=== PATIENT | female | born 1955 | race Caucasian/White ===

== ENCOUNTER 2020-10-02 07:53 | Outpatient (CLI) | payer SELFPAY ==
--- NOTE | 2020-10-02 08:00 | US_ITS ---
WS: [id number] ULTRASOUND BILATERAL BREAST HISTORY: Z12.31 - Encounter for screening mammogram for malignant ... COMPARISON: None available. TECHNIQUE: 2-D and Doppler. RIGHT breast: Hypoechoic nodule 2:00, 1 cm from the nipple measures 11 x 11 x 11 mm. Additional hypoe choic nodule 2:00 1 cm from the nipple 2 x 3 x 2 mm. Hypoechoic nodule 8:00, at the areolar measures 5 x 5 x 3 mm. Hypoechoic nodule RIGHT breast 10:00 measures 7 x 9 x 5 mm. Benign lymph nodes in the a xilla. LEFT breast: Benign lymph nodes LEFT axilla. US/US breast BI complete [id number] IMPRESSION: BI-RADS: 0-Incomplete: Need additional imaging evaluation FOLLOW-UP: See Report Bilateral screening mammogram was not obtained prior to this complete breast ul trasound. Recommend follow-up diagnostic mammogram is a breast ultrasound canno t replace the mammogram. If there are prior ultrasound or mammographic examinat ions these should also be obtained for comparison purposes.
== END 2020-10-02 07:54 | disposition home or self-care (01) ==
LOC: RAD 07:55
PROVIDERS: PCP Family Medicine; Visit Provider Family Medicine
DX: Z12.31 Encounter for screening mammogram for malignant neoplasm of breast (principal); N63.12 Unspecified lump in the right breast, upper inner quadrant; N63.13 Unspecified lump in the right breast, lower outer quadrant
CPT/HCPCS: 76641

== ENCOUNTER 2021-06-04 14:51 | Emergency (ER) | payer MEDICARE, BC, SELFPAY ==
[2021-06-04 14:58] VITALS: BP 133/90; PULSE 95; RESP 14; TEMP 36.3; O2SAT 95; BMI 27.1
--- NOTE | 2021-06-04 15:21 | XR_ITS ---
WS: [id number] Portable AP upright chest, 06/04/2021 Clinical Data: dyspnea/cough Comparison: None. Findings: There are patchy bilateral opacities especially in the upper lobes. These could be chronic changes but may represent acute pneumonia. The diaphragms are elevated and flattened. The heart is no rmal. The aortic arch shows tortuosity. No nodules or masses are seen. XR/XR chest 1V portable [id number] Impression: 1. Patchy bilateral pulmonary opacities especially in the upper lobes which may represent chronic interstitial fibrosis but acute pneumonia is possible. 2. Atherosclerosis. 3. Elevation of both diaphragms from hyperinflation.
--- NOTE | 2021-06-04 15:21 | ED_ITS ---
Documented by User: Matias Moss DO 06/05/21 07:27 HPI - Chest Pain General: Chief Complaint: Chest Pain Stated Complaint: Chest Pain Time Seen by Provider: 06/04/21 15:20 Source: patient Mode of arrival: ambulatory History of Present Illness: 65-year-old female presents emergency room complaining of generalized fatigue generally not feeling well onset left-sided chest pain radiating to her neck arm and a little bit into her back. Has not had any vomiting or diarrhea. She denies any fever sweats or chills. MD complaint: chest pain Onset (ago): day(s) Timing of current episode: episodic Prior episodes: Yes Onset: during rest Pain location: left chest Pain radiation: neck and left shoulder Severity: mild Quality: tightness and aching Relieving factors: nothing Exacerbating factors: nothing Associated symptoms: Deny abdominal pain, diaphoresis, dyspnea, fever(s), leg edema, nausea, palpitations, sense of impending doom, syncope or vomiting Treatment prior to arrival: none Review of Systems Const: Denies: fever(s) or diaphoresis ENMT: Denies: throat pain, ear or mastoid pain, nasal discharge or nasal congestion Card: Denies: palpitations or syncope Resp: Denies: dyspnea GI: Denies: abdominal pain, nausea or vomiting : Denies: flank pain, difficulty voiding, dysuria, urinary frequency or urin tyler urgency Skin/Breast: Denies: rash or pruritus [facility] ED PFSH: Medical History Compression fracture (~01/2020) Femoral hernia (~2014) Hearing loss (03/2013) Hx of fracture of tibia (~2013) Large hiatal hernia Pulmonary sarcoidosis (~2014) Rheumatoid arthritis (08/2020) Surgical History H/O sinus surgery (~1980) H/O: hysterectomy (~2008) History of kidney surgery (~2008) Hx of cholecystectomy (~2014) Social History Smoking and tobacco status: never smoked Marital status: Physical Exam Const: COMMON NORMALS: no acute distress GENERAL APPEARANCE: cooperative and comfortable ORIENTATION/CONSCIOUSNESS: Yes awake, Yes oriented to person, Yes oriented to place and Yes oriented to time HENMT: COMMON NORMALS: normocephalic, atraumatic and hearing grossly normal bilaterally HEAD & SCALP: normocephalic and atraumatic Neck/C-Spine: COMMON NORMALS: no JVD Resp: COMMON NORMALS: normal respiratory effort, No retractions, No use of accessory muscles and clear to auscultation bilaterally AUSCULTATION: clear to auscultation bilaterally Cardio: COMMON NORMALS: no JVD, regular rate, regular rhythm and No murmurs present (Cardio) RATE: regular rate RHYTHM: regular rhythm GI: COMMON NORMALS: Soft to palpation and No hepatosplenomegaly present AUSCULTATION: Yes normoactive bowel sounds PALPATION: Yes Soft to palpation, No Tenderness to palpation present (GI), No Guarding due to palpation present (GI) and Yes No hepatosplenomegaly present Extremity: COMMON NORMALS: normal to inspection, capillary refill normal, no clubbing, cyanosis or edema, no calf tenderness and no pedal edema Neuro: SENSORIUM/ORIENTATION: Yes oriented to person, Yes oriented to place and Yes oriented to time Skin: COMMON NORMALS: no rashes or lesions noted GENERAL SKIN EXAM: no rashes or lesions noted Course Vital Signs: Vital signs: Vital Signs Temperature 97.3 F L 06/04/21 14:58 Pulse Rate 98 06/04/21 19:20 Respiratory Rate 18 06/04/21 19:20 Blood Pressure 119/83 06/04/21 19:20 Pulse Oximetry 99 06/04/21 19:20 MDM - Chest Pain Medical Decision Making Care signed out to Dr. Martin at change of shift. See final notes for diagnosis and disposition. Patient presents here with chest pains atypical in nature I took patient over from Dr. Cleainng initial repeat troponins are negative patient has no symptoms of pneumonia here she does have a history of sarcoidosis likely the findings on the x-ray. She has no signs of pulmonary embolism Covid here is negative she is stable for discharge is to follow-up with PCP in 3 to 5 days and return if worsening. Medical Records I reviewed the patient's medical records. Lab Data : 06/04/21 15:44 06/04/21 15:44 Radiology Impressions Chest X-Ray 06/04/21 15:21 Impression: 1. Patchy bilateral pulmonary opacities especially in the upper lobes which may represent chronic interstitial fibrosis but acute pneumonia is possible. 2. Atherosclerosis. 3. Elevation of both diaphragms from hyperinflation. Laboratory Results WBC 8.3 10^3/uL (4.0-10.0) 06/04/21 15:44 RBC 4.37 10^6/uL (4.1-5.3) 06/04/21 15:44 Hgb 13.7 g/dL (11.5-15.3) 06/04/21 15:44 Hct 42.2 % (37.0-47.0) 06/04/21 15:44 MCV 96.6 fl (81-99) 06/04/21 15:44 MCH 31.4 pg (28.0-34.0) 06/04/21 15:44 MCHC 32.5 g/dL (30.0-36.0) 06/04/21 15:44 RDW 14.4 % (12.1-15.1) 06/04/21 15:44 Plt Count 277 10^3/cmm (130-400) 06/04/21 15:44 MPV 10.0 fL (7.4-10.4) 06/04/21 15:44 Neut % (Auto) 83.9 % 06/04/21 15:44 Lymph % (Auto) 6.3 % 06/04/21 15:44 [place] % (Auto) 5.9 % 06/04/21 15:44 Eos % (Auto) 3.5 % 06/04/21 15:44 Baso % (Auto) 0.2 % 06/04/21 15:44 Neut # (Auto) 6.96 10^3/uL (1.8-7.7) 06/04/21 15:44 Lymph # (Auto) 0.5 10^3/uL (0.8-4.8) L 06/04/21 15:44 [place] # (Auto) 0.5 10^3/uL (0.2-0.9) 06/04/21 15:44 Eos # (Auto) 0.3 10^3/uL (0.0-0.8) 06/04/21 15:44 Baso # (Auto) 0.0 10^3/uL (0.0-0.1) 06/04/21 15:44 Nucleated RBC % (auto) 0 % 06/04/21 15:44 Nucleated RBCs # 0.0 /100WBC 06/04/21 15:44 Sodium 134 mmol/L (136-145) L 06/04/21 15:44 Potassium 3.4 mmol/L (3.5-5.1) L 06/04/21 15:44 Chloride 101 mmol/L (98-107) 06/04/21 15:44 Carbon Dioxide 25 mmol/L (22-29) 06/04/21 15:44 Anion Gap 11.4 (5-19) 06/04/21 15:44 BUN 15 mg/dL (8-23) 06/04/21 15:44 Creatinine 0.3 mg/dL (0.5-0.9) L 06/04/21 15:44 GFR Calculation 224.0 mL/min (90-130) H 06/04/21 15:44 Glucose 107 mg/dL (65-115) 06/04/21 15:44 Calculated Osmolality 279 mOsm/kg (285-295) L 06/04/21 15:44 Calcium 7.6 mg/dL (8.5-10.5) L 06/04/21 15:44 Total Bilirubin 0.3 mg/dL (0.15-1.2) 06/04/21 15:44 AST 21 U/L (0-32) 06/04/21 15:44 ALT 14 U/L (0-33) 06/04/21 15:44 Alkaline Phosphatase 61 IU/L (35-105) 06/04/21 15:44 Creatine Kinase 51 U/L (26-192) 06/04/21 15:44 Troponin T Baseline 6 ng/L (0-10) 06/04/21 15:44 Troponin T 120 Minute 6.00 ng/L (0-10) 06/04/21 17:57 Delta Troponin T 0 ABS# (0-10) 06/04/21 17:57 Total Protein 6.6 g/dL (6.6-8.7) 06/04/21 15:44 Albumin 3.3 g/dL (3.5-5.2) L 06/04/21 15:44 Globulin 3.3 g/dL (1.3-4.6) 06/04/21 15:44 Coronavirus 229E (PCR) Not detected (NOT DETECT) 06/04/21 16:40 Human Metapneumovir PCR Not detected (NOT DETECT) 06/04/21 18:48 Entero/Rhino (PCR) Detected (NOT DETECT) A 06/04/21 18:48 SARS-CoV-2 (PCR) Not detected (NOT DETECT) 06/04/21 16:40 Discharge Plan Discharge Patient Disposition: Home Clinical Impression: Chest pain Condition: Stable Prescriptions: No Action raloxifene [Evista] 60 mg tablet 60 mg PO QAM 0RF gabapentin 300 mg capsule 300 mg PO BEDTIME 0RF folic acid 1 mg tablet 1 mg PO QAM 0RF b 52 formula 4 tab PO QAM 0RF Algaecal Plus 2 cap PO BID 0RF prednisone 5 mg tablet 5 mg PO DAILY@17 0RF Aspir-81 81 mg Tablet,Delayed Release (Dr/Ec) 243 mg PO DAILY 0RF methotrexate sodium (PF) 25 mg/mL solution See Rx Instructions .ROUTE .COMPLEX 0RF Rx Instructions: 0.8ML IM EVERY 7 DAYS ON Tue Doterra Lifelong Vitality Pack 2 cap PO QAM 0RF Strontium Boost 2 cap PO DAILY@12 0RF Womens In Balance 1 tab PO BID 0RF magnesium 1 cap PO DAILY@17 0RF Discharge Orders: Discharge ED (Routine); Ordered 06/04/21 Ordered By: Betsy Martin Referrals: Sabrina Galvez MD [Primary Care Provider] - 1-3 days Discharge Diet: Advance as tolerated Discharge Activity: Resume usual activity Patient Instructions: Chest Pain (ED) Coding Level of Care Code 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 [place] Documented by User: Betsy Martin MD 06/04/21 19:08 HPI - Chest Pain General: Chief Complaint: Chest Pain Stated Complaint: Chest Pain Time Seen by Provider: 06/04/21 15:20 PFSH ED PFSH: Medical History Compression fracture (~01/2020) Femoral hernia (~2014) Hearing loss (03/2013) Hx of fracture of tibia (~2013) Large hiatal hernia Pulmonary sarcoidosis (~2014) Rheumatoid arthritis (08/2020) Surgical History H/O sinus surgery (~1980) H/O: hysterectomy (~2008) History of kidney surgery (~2008) Hx of cholecystectomy (~2014) Social History Smoking and tobacco status: never smoked Marital status: Course Vital Signs: Vital signs: Vital Signs Temperature 97.3 F L 06/04/21 14:58 Pulse Rate 98 06/04/21 19:20 Respiratory Rate 18 06/04/21 19:20 Blood Pressure 119/83 06/04/21 19:20 Pulse Oximetry 99 06/04/21 19:20 MDM - Chest Pain Medical Decision Making Patient presents here with chest pains atypical in nature I took patient over from Dr. Cleaning initial repeat troponins are negative patient has no symptoms of pneumonia here she does have a history of sarcoidosis likely the findings on the x-ray. She has no signs of pulmonary embolism Covid here is negative she is stable for discharge is to follow-up with PCP in 3 to 5 days and return if wors ening. Lab Data : 06/04/21 15:44 06/04/21 15:44 Radiology Impressions Chest X-Ray 06/04/21 15:21 Impression: 1. Patchy bilateral pulmonary opacities especially in the upper lobes which may represent chronic interstitial fibrosis but acute pneumonia is possible. 2. Atherosclerosis. 3. Elevation of both diaphragms from hyperinflation. Laboratory Results WBC 8.3 10^3/uL (4.0-10.0) 06/04/21 15:44 RBC 4.37 10^6/uL (4.1-5.3) 06/04/21 15:44 Hgb 13.7 g/dL (11.5-15.3) 06/04/21 15:44 Hct 42.2 % (37.0-47.0) 06/04/21 15:44 MCV 96.6 fl (81-99) 06/04/21 15:44 MCH 31.4 pg (28.0-34.0) 06/04/21 15:44 MCHC 32.5 g/dL (30.0-36.0) 06/04/21 15:44 RDW 14.4 % (12.1-15.1) 06/04/21 15:44 Plt Count 277 10^3/cmm (130-400) 06/04/21 15:44 MPV 10.0 fL (7.4-10.4) 06/04/21 15:44 Neut % (Auto) 83.9 % 06/04/21 15:44 Lymph % (Auto) 6.3 % 06/04/21 15:44 [place] % (Auto) 5.9 % 06/04/21 15:44 Eos % (Auto) 3.5 % 06/04/21 15:44 Baso % (Auto) 0.2 % 06/04/21 15:44 Neut # (Auto) 6.96 10^3/uL (1.8-7.7) 06/04/21 15:44 Lymph # (Auto) 0.5 10^3/uL (0.8-4.8) L 06/04/21 15:44 [place] # (Auto) 0.5 10^3/uL (0.2-0.9) 06/04/21 15:44 Eos # (Auto) 0.3 10^3/uL (0.0-0.8) 06/04/21 15:44 Baso # (Auto) 0.0 10^3/uL (0.0-0.1) 06/04/21 15:44 Nucleated RBC % (auto) 0 % 06/04/21 15:44 Nucleated RBCs # 0.0 /100WBC 06/04/21 15:44 Sodium 134 mmol/L (136-145) L 06/04/21 15:44 Potassium 3.4 mmol/L (3.5-5.1) L 06/04/21 15:44 Chloride 101 mmol/L (98-107) 06/04/21 15:44 Carbon Dioxide 25 mmol/L (22-29) 06/04/21 15:44 Anion Gap 11.4 (5-19) 06/04/21 15:44 BUN 15 mg/dL (8-23) 06/04/21 15:44 Creatinine 0.3 mg/dL (0.5-0.9) L 06/04/21 15:44 GFR Calculation 224.0 mL/min (90-130) H 06/04/21 15:44 Glucose 107 mg/dL (65-115) 06/04/21 15:44 Calculated Osmolality 279 mOsm/kg (285-295) L 06/04/21 15:44 Calcium 7.6 mg/dL (8.5-10.5) L 06/04/21 15:44 Total Bilirubin 0.3 mg/dL (0.15-1.2) 06/04/21 15:44 AST 21 U/L (0-32) 06/04/21 15:44 ALT 14 U/L (0-33) 06/04/21 15:44 Alkaline Phosphatase 61 IU/L (35-105) 06/04/21 15:44 Creatine Kinase 51 U/L (26-192) 06/04/21 15:44 Troponin T Baseline 6 ng/L (0-10) 06/04/21 15:44 Troponin T 120 Minute 6.00 ng/L (0-10) 06/04/21 17:57 Delta Troponin T 0 ABS# (0-10) 06/04/21 17:57 Total Protein 6.6 g/dL (6.6-8.7) 06/04/21 15:44 Albumin 3.3 g/dL (3.5-5.2) L 06/04/21 15:44 Globulin 3.3 g/dL (1.3-4.6) 06/04/21 15:44 Coronavirus 229E (PCR) Not detected (NOT DETECT) 06/04/21 16:40 Human Metapneumovir PCR Not detected (NOT DETECT) 06/04/21 18:48 Entero/Rhino (PCR) Detected (NOT DETECT) A 06/04/21 18:48 SARS-CoV-2 (PCR) Not detected (NOT DETECT) 06/04/21 16:40 Discharge Plan Discharge Patient Disposition: Home Clinical Impression: Chest pain Condition: Stable Prescriptions: No Action raloxifene [Evista] 60 mg tablet 60 mg PO QAM 0RF gabapentin 300 mg capsule 300 mg PO BEDTIME 0RF folic acid 1 mg tablet 1 mg PO QAM 0RF b 52 formula 4 tab PO QAM 0RF Algaecal Plus 2 cap PO BID 0RF prednisone 5 mg tablet 5 mg PO DAILY@17 0RF Aspir-81 81 mg Tablet,Delayed Release (Dr/Ec) 243 mg PO DAILY 0RF methotrexate sodium (PF) 25 mg/mL solution See Rx Instructions .ROUTE .COMPLEX 0RF Rx Instructions: 0.8ML IM EVERY 7 DAYS ON Tue Doterra Lifelong Vitality Pack 2 cap PO QAM 0RF Strontium Boost 2 cap PO DAILY@12 0RF Womens In Balance 1 tab PO BID 0RF magnesium 1 cap PO DAILY@17 0RF Discharge Orders: Discharge ED (Routine); Ordered 06/04/21 Ordered By: Betsy Martin Referrals: Sabrina Galvez MD [Primary Care Provider] - 1-3 days Discharge Diet: Advance as tolerated Discharge Activity: Resume usual activity Patient Instructions: Chest Pain (ED) Coding Level of Care Code 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
--- NOTE | 2021-06-04 15:22 | ECG_ITS ---
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 Measurements Intervals [place] Rate: 94 P: 33 MT: 138 QRS: -40 QRSD: 106 T: 94 QT: 351 QTc: 440 Interpretive Statements SINUS RHYTHM POSSIBLE LEFT ATRIAL ENLARGEMENT [-0.1mV P-WAVE IN V1/V2] LEFT AXIS DEVIATION [QRS AXIS < -30] Possible old septal [place] INCOMPLETE RIGHT BUNDLE BRANCH BLOCK [90+ ms QRS DURATION, TERMINAL R IN V1/V2, 40+ ms S IN I/aVL/V4/V5/V6] LEFT VENTRICULAR HYPERTROPHY AND ST-T CHANGE [VOLTAGE CRITERIA PLUS ST/T ABNORMALITY] POSSIBLE SEPTAL MYOCARDIAL INFARCTION , OF INDETERMINATE AGE [30 ms Q WAVE IN V1/V2] No previous ECG available for comparison Electronically Signed On 06-04-2021 17:47:20 PLAYGROUND EQUIPMENT ERECTOR by Mohan Pascual M.D. [id number]
[2021-06-04 15:57] LABS: Basophils % 0.2 %; Eosinophils # 0.3 10^3/uL (0.0-0.8); Eosinophils % 3.5 %; Hematocrit 42.2 % (37.0-47.0); Hemoglobin 13.7 g/dL (11.5-15.3); Lymphocytes # 0.5 10^3/uL (0.8-4.8); Lymphocytes % 6.3 %; Mean Corpuscular HGB Conc 32.5 g/dL (30.0-36.0); Mean Corpuscular Hemoglobin 31.4 pg (28.0-34.0); Mean Corpuscular Volume 96.6 fl (81-99); Monocytes # 0.5 10^3/uL (0.2-0.9); Monocytes % 5.9 %; Neutrophils # 6.96 10^3/uL (1.8-7.7); Neutrophils % 83.9 %; Nucleated Red Blood Cells % 0 %; Platelet Count 277 10^3/cmm (130-400); Red Blood Count 4.37 10^6/uL (4.1-5.3); Red Cell Distribution Width 14.4 % (12.1-15.1); White Blood Count 8.3 10^3/uL (4.0-10.0)
[2021-06-04 16:16] LABS: Troponin(5th) Baseline 6 ng/L (0-10)
[2021-06-04 16:18] LABS: Alanine Aminotransferase 14 U/L (0-33); Albumin Level 3.3 g/dL (3.5-5.2); Alkaline Phosphatase 61 IU/L (35-105); Anion Gap 11.4 (5-19); Aspartate Amino Transferase 21 U/L (0-32); Blood Urea Nitrogen 15 mg/dL (8-23); Calcium 7.6 mg/dL (8.5-10.5); Carbon Dioxide 25 mmol/L (22-29); Chloride 101 mmol/L (98-107); Creatine Phosphokinase 51 U/L (26-192); Globulin 3.3 g/dL (1.3-4.6); Glucose 107 mg/dL (65-115); Osmolality Calculated 279 mOsm/kg (285-295); Potassium 3.4 mmol/L (3.5-5.1); Sodium 134 mmol/L (136-145); Total Bilirubin 0.3 mg/dL (0.15-1.2); Total Protein 6.6 g/dL (6.6-8.7)
--- NOTE | 2021-06-04 17:22 | ECG_ITS ---
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 Measurements Intervals [place] Rate: 89 P: -7 KS: 139 QRS: -41 QRSD: 96 T: 93 QT: 362 QTc: 442 Interpretive Statements SINUS RHYTHM LEFT AXIS DEVIATION [QRS AXIS < -30] INCOMPLETE RIGHT BUNDLE BRANCH BLOCK LEFT VENTRICULAR HYPERTROPHY AND ST-T CHANGE POSSIBLE SEPTAL MYOCARDIAL INFARCTION , OF INDETERMINATE AGE Compared to ECG 06/04/2021 14:59:36 No significant changes Electronically Signed On 06-06-2021 9:07:11 SHEET HEATER by Ani Lora M.D. [id number]
[2021-06-04] MEDS: ondansetron 2 mg/ML SDV 2 mL 4 MG IVP (18:35)
[2021-06-04 18:37] LABS: Adenovirus Not Detected (NOT DETECT); Chlamydia Pneumoniae Not Detected (NOT DETECT); Coronavirus 229E,HKU1,NL63,OC4 Not Detected (NOT DETECT); Human Metapneumovirus Not Detected (NOT DETECT); Human Rhinovirus/Enterovirus Detected (NOT DETECT); Influenza A Not Detected (NOT DETECT); Influenza A H1 Not Detected (NOT DETECT); Influenza A H1-2009 Not Detected (NOT DETECT); Influenza A H3 Not Detected (NOT DETECT); Influenza B Not Detected (NOT DETECT); Mycoplasma Pneumoniae Not Detected (NOT DETECT); Parainfluenza Virus Type 1 Not Detected (NOT DETECT); Parainfluenza Virus Type 2 Not Detected (NOT DETECT); Parainfluenza Virus Type 3 Not Detected (NOT DETECT); Parainfluenza Virus Type 4 Not Detected (NOT DETECT); Respiratory Syncytial Virus A Not Detected (NOT DETECT); Respiratory Syncytial Virus B Not Detected (NOT DETECT); SARS-COV-2 Not Detected (NOT DETECT)
[2021-06-04 18:48] LABS: Human Metapneumovirus Not Detected (NOT DETECT); Human Rhinovirus/Enterovirus Detected (NOT DETECT); Results from Genmark
--- NOTE | 2021-06-04 19:07 | PC.NURSE ---
REPORT GIVEN TO ELOY ZHAO ASSUMED CARE.
[2021-06-04 19:12] LABS: Troponin 5 2HR Delta 0 ABS# (0-10)
[2021-06-04 19:20] VITALS: BP 119/83; PULSE 98; RESP 18; O2SAT 99
== END 2021-06-04 19:25 | disposition home or self-care (01) ==
PROVIDERS: Family Medicine; Emergency Provider Emergency Medicine; PCP Family Medicine
DX: R07.9 Chest pain, unspecified (principal); Z79.82 Long term (current) use of aspirin; Z20.822 Contact with and (suspected) exposure to COVID-19
CPT/HCPCS: 71045; 80053; 82550; 84484; 85025; 87635; 87801; 93005; 96374; 99283; J2405

== ENCOUNTER → 2021-08-13 13:57 | Outpatient (BNVA) | payer MEDICARE, BC, SELFPAY | PROVIDERS: PCP Family Medicine; Visit Provider Internal Medicine Cardiovascular Disease | DX: R07.9 Chest pain, unspecified (principal); D86.0 Sarcoidosis of lung; R94.31 Abnormal electrocardiogram [ECG] [EKG]; Z86.79 Personal history of other diseases of the circulatory system | CPT/HCPCS: 99204 ==

== ENCOUNTER 2021-09-03 08:46 | Outpatient (CLI) | payer MEDICARE, BC, SELFPAY ==
[2021-09-03 09:25] VITALS: BMI 27.1
--- NOTE | 2021-09-03 09:28 | NMCV_ITS ---
NM edgard perf SPECT r/s* [id number] Shavon Ty Age: 66 Gender: F : 1955 Exam Date: 09/03/2021 09:28 Ordering Phys: Mohan Pascual MD ([email or web address]) Technologist: JANICE Olsen Exam Location: [facility] Indications: SHORTNESS OF BREATH STRESS TEST Please see separate stress test report in Ephiphany for full findings IMAGE PROTOCOL Rest/Stress 1 Lexiscan Day Radiopharmaceutical Dose (mCi) Administration Site Administered by Rest: Tc-99m 10.9 IV JANICE Anguiano Sestamibi Stress:Tc-99m 32.5 IV JANICE Olsen Sestamiemmanuel Rest: 03-Sep-2021 60 Discovery 630 Stress: 03-Sep-2021 30 Discovery 630 0.4mg Lexiscan. Supine position only as patient was unable to lay prone. SPECT RESULTS Technical Quality: Excellent Raw Data Analysis: Normal Image Corrections: No attenuation or motion correction applied Summed Stress Score: 1 Summed Rest Score: 8 Summed Difference Score: 0 PERFUSION FINDINGS Small areas of decreased aseptic in the mid anteroseptal and mid inferolateral and apical inferior regions. No significant reversibility was noted in these regions. FUNCTIONAL RESULTS (calculated via Gated SPECT) Stress Image LV EF (%): 81 Stress EDV (mL):58 TID: 1.21 Stress ESV (mL):11 FUNCTIONAL FINDINGS: Segmental wall motion analysis revealing no gross wall motion abnormalities IMPRESSIONS 1. Myocardial perfusion imaging revealing small areas of persistent decreased tracer uptake in the anteroseptal, inferolateral and inferior regions, most likely to present agitation artifacts. 2. Normal LV ejection fraction of 81%. 3. LV wall motion analysis revealing no gross wall motion abnormalities. 4. Normal LV volume Low probability for coronary ischemia, based on the above findings. No similar previous studies are available for comparison Dr Mohan Pascual MD [facility] (Electronically Signed) Final Date: 03 September 2021 13:43 S
--- NOTE | 2021-09-03 09:28 | ECG_ITS ---
[facility] Test Date: 2021-09-03 Pat Name: Shavon Ty Department: Room: Gender: Female Reimbursement Spec: Saima Joseph : 1955 Requested By: Mohan Pascual Order Number: [id number] Ryan MD: Mohan Pascual M.D. Interpretive Statements NAME OF STUDY: LEXISCAN SESTAMIBI STRESS TEST INDICATION: Chest Pain, PROCEDURE: At the baseline, the EKG revealed normal sinus rhythm with features of old septal myocardial infarction. Minimal left axis deviation. Some nonspecific T wave changes. The baseline blood pressure was 121/80 mm Hg with a heart rate of 75 beats/min. Lexiscan was infused over a period of 20 seconds. A total of 0.4 milligrams of Lexiscan was infused. The stress phase was continued for a total of 5 minutes. Heart rate at the end of the stress phase was 104 with a blood pressure 113/76. The EKG at the peak infusion revealed no significant changes. Sestamibi was injected 20 seconds after the Lexiscan infusion. Blood pressure at the end of the recovery phase was 111/74 with a heart rate of 94 per minute. CONCLUSION: 1. No significant EKG changes with the LexiScan infusion 2. No LexiScan induced chest pain or cardiac arrhythmia 3. Normal blood pressure and heart rate response 4. Sestamibi/sestamibi perfusion scan pending; see separate report. Electronically Signed On 09-04-2021 13:27:12 CDT by Mohan Pascual M.D. [id number]
[2021-09-03] MEDS: regadenoson 0.4 Mg/5 ml Syringe IVP (10:58)
[2021-09-03 11:49] VITALS: BP 111/74; PULSE 94
== END 2021-09-03 08:47 | disposition home or self-care (01) ==
LOC: CDL 08:52
PROVIDERS: PCP Family Medicine; Visit Provider Internal Medicine Cardiovascular Disease
DX: R07.9 Chest pain, unspecified (principal); R06.02 Shortness of breath
CPT/HCPCS: 78452; 93017; A9500; J2785

== ENCOUNTER 2021-09-18 13:31 | Outpatient (CLI) | payer MEDICARE, BC, SELFPAY ==
--- NOTE | 2021-09-18 13:41 | USCV_ITS ---
Shavon Ty Age: 66 Gender: F : 1955 Exam Date: 09/18/2021 13:51 Ordering Phys: Mohan Pascual MD ([email or web address]) Technologist: Sheela Whitmore Exam Location: [facility] Indication: abnormal ekg BP: / HR: 83 Rhythm: Sinus Technical Quality: Adequate MEASUREMENTS (Male / Female) Normal Values 2D ECHO LV Diastolic Diameter PLAX 2.2 cm 4.2 - 5.9 / 3.9 - 5.3 cm LV Systolic Diameter PLAX 1.5 cm LV Chamber Size 2.5 cm IVS Diastolic Thickness 1.1 cm 0.6 - 1.0 / 0.6 - 0.9 cm IVS Systolic Thickness 1.6 cm LVPW Diastolic Thickness 1.6 cm 0.6 - 1.0 / 0.6 - 0.9 cm LVPW Systolic Thickness 1.4 cm RV Chamber Size 3.1 cm LVOT Diameter 2.0 cm LV Ejection Fraction 2D Teich 65.2 % LV Ejection Fraction MOD 2C 70.4 % LV Ejection Fraction 2C AL 72.2 % LA Diameter 2.0 cm LA Width 3.5 cm LA Height 3.9 cm RA Width 2.5 cm RA Height 2.3 cm Aorta at Sinotubular Diameter 2.3 cm IVC Diameter 1.5 cm M-MODE Aortic Annulus Diameter 2.9 cm LA Ao Ratio MM 0.8 MV E Point Septal Separation 0.3 cm DOPPLER AV Peak Velocity 185.0 cm/s LVOT Peak Velocity 145.0 cm/s AV Area Cont Eq vti 2.6 cm squared AV Area Cont Eq pk 2.5 cm squared MV Area PHT 2.9 cm squared Mitral E to A Ratio 1.1 MV E' Velocity 52.5 cm/s Mitral E to MV E' Ratio 10.7 Mitral E to LV E' Lateral Ratio 8.8 Mitral E to LV E' Septal Ratio 13.7 TR Peak Velocity 268.7 cm/s TR Peak Gradient 28.9 mmHg TR Mean Velocity 209.7 cm/s TR Mean Gradient 19.5 mmHg TR Velocity Time Integral 78.6 cm TV Peak E Velocity 60.0 cm/s PV Peak Velocity 89.0 cm/s RV Acceleration Time 0.1 s RV Ejection Time 0.3 s RV AcT/ET 0.5 FINDINGS Left Ventricle Normal left ventricular size and systolic function, EF 64 %. Mild left ventricular hypertrophy. No regional wall motion abnormalities. Right Ventricle The right ventricle is normal in size and function. Right Atrium The right atrium is normal in size. Left Atrium The left atrium is normal in size. Mitral Valve No gross abnormalities noted Aortic Valve Thickened aortic valve. Tricuspid Valve Mild tricuspid valve regurgitation. Estimated pulmonary artery peak systolic pressure, 32 mmHg Pulmonic Valve No gross abnormalities noted Pericardium Normal pericardium without effusion. Aorta Normal ascending aorta dimension. IVC IVC was of normal size CONCLUSIONS Normal left ventricular size and systolic function, EF 64 %. Mild left ventricular hypertrophy. No regional wall motion abnormalities. Mild tricuspid valve regurgitation. Estimated pulmonary artery peak systolic pressure, 32 mmHg. Normal cardiac chamber sizes. There is no pericardial effusion. There are no intracardiac masses. No similar previous studies are available for comparison Dr Mohan Pascual MD [facility] (Electronically Signed) Final Date: 22 September 2021 06:20 S
== END 2021-09-18 13:32 | disposition home or self-care (01) ==
LOC: RAD 13:35
PROVIDERS: PCP Family Medicine; Visit Provider Internal Medicine Cardiovascular Disease
DX: R94.31 Abnormal electrocardiogram [ECG] [EKG] (principal); I25.2 Old myocardial infarction; I07.1 Rheumatic tricuspid insufficiency
CPT/HCPCS: 93306

== ENCOUNTER → 2021-10-21 10:21 | Outpatient (BNVA) | payer MEDICARE, BC, SELFPAY | PROVIDERS: PCP Family Medicine; Visit Provider Internal Medicine Cardiovascular Disease | DX: R07.9 Chest pain, unspecified (principal); R00.2 Palpitations; R94.31 Abnormal electrocardiogram [ECG] [EKG]; D86.0 Sarcoidosis of lung; I10 Essential (primary) hypertension | CPT/HCPCS: 99214 ==

== ENCOUNTER → 2021-12-03 08:25 | Outpatient (BNVA) | payer MEDICARE, BC, SELFPAY | PROVIDERS: PCP Family Medicine; Visit Provider Internal Medicine Pulmonary Disease | DX: J84.10 Pulmonary fibrosis, unspecified (principal); D86.0 Sarcoidosis of lung; R68.2 Dry mouth, unspecified; H04.123 Dry eye syndrome of bilateral lacrimal glands; T78.40XA Allergy, unspecified, initial encounter; M05.9 Rheumatoid arthritis with rheumatoid factor, unspecified; J84.9 Interstitial pulmonary disease, unspecified; K44.9 Diaphragmatic hernia without obstruction or gangrene | CPT/HCPCS: 82785; 85025; 86003; 86235; 99204 ==

== ENCOUNTER 2021-12-29 11:57 | Outpatient (CLI) | payer MEDICARE, BC, SELFPAY ==
--- NOTE | 2021-12-29 12:30 | CT_ITS ---
WS: [id number] CT CHEST CT-HIGH RESOLUTION, NONCONTRAST. HISTORY: Interstitial lung disease. Technique: High-resolution chest CT is performed in inspiration, expiration, supine and prone positio dickson. All CT scans at [facility] use at least one of these dose optimization techniques: automated exposure control; mA and/or kV adjustment per patient size (includes targeted exams where dose is mat ched to clinical indication); or iterative reconstruction. DLP: 565.34 mGy.cm COMPARISON: 01/30/2021, 02/07/2020 Findings: Marked pulmonary hyperexpansion. Numerous thin-walled cystic areas are noted in the upper l amy gonsales. Some of these cystic areas appear to be varicoid in appearance suggesting this is probabl y traction bronchiectasis, greatest in the RIGHT upper lobe. These cystic areas do extend back to the hilar regions. Similar findings but to a much lesser extent at the LEFT apex. No sparing of the mingo phery. There is more typical honeycombing noted in the basal distribution of the lower lung gonsales. A s compared to the most recent examination only minimal progression of honeycombing and bronchiectasis . There is no improvement of aeration with the patient in a prone position or with inspiration. Durin g expiration there is no significant lucency or mosaic attenuation. There is volume loss. No mass or nodules are identified. Patient has a very large hiatal hernia. Essentially the entire sto mach is intrathoracic. No adenopathy. Calcification noted within the bronchial tree. Calcifications n oted within the RIGHT kidney. CT/CT chest wo con [id number] Impression: 1. Severe emphysema with UIP at the lung bases. 2. Numerous thin-walled cysts in the upper lung gonsales. Favor this is probably varicoid traction bronchiectasis over honeycombing. Honeycombing in the upper lung gonsales is unusual for UIP. Alternative diagnosis should be considered if t his is honeycombing. This does appear to be traction bronchiectasis, may be rel ated to prior episodes of infection or aspiration. 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 3. No adenopathy. 4. No significant air trapping. 5. Large hiatal hernia.
--- NOTE | 2021-12-29 13:55 | PFTS_ITS ---
Date of Study:12/29/21 Date of Dictation: MECHANICS: Forced vital capacity (FVC) is normal. Forced expiratory volume in one second (FEV1) is normal. FEV1/FVC is normal. FLOW VOLUME LOOP: Normal. LUNG VOLUMES: Total lung capacity (TLC) is normal. Residual volume (RV) is reduced. DIFFUSING CAPACITY FOR CARBON MONOXIDE: Normal. INTERPRETATION: The prebronchodilator spirometry is normal. No postbronchodilator spirometry was performed. Total lung capacity is normal. There is nonspecific reduction in residual volume. Gas exchange (DLCO) is normal. MTDD
== END 2021-12-29 11:58 | disposition home or self-care (01) ==
LOC: RAD 11:58
PROVIDERS: PCP Family Medicine; Visit Provider Internal Medicine Pulmonary Disease
DX: J84.10 Pulmonary fibrosis, unspecified (principal); J84.9 Interstitial pulmonary disease, unspecified; M35.9 Systemic involvement of connective tissue, unspecified; R68.2 Dry mouth, unspecified; H04.123 Dry eye syndrome of bilateral lacrimal glands; K44.9 Diaphragmatic hernia without obstruction or gangrene; M05.9 Rheumatoid arthritis with rheumatoid factor, unspecified; R53.81 Other malaise
CPT/HCPCS: 71250; 94010; 94726; 94729; 99214

== ENCOUNTER 2022-01-12 06:00 | Outpatient (RCR) | payer MEDICARE, BC, SELFPAY | END 2022-02-01 23:59 | disposition home or self-care (01) | LOC: TPT 06:00 | PROVIDERS: PCP Family Medicine; Visit Provider Internal Medicine Pulmonary Disease | DX: R53.81 Other malaise (principal); J84.10 Pulmonary fibrosis, unspecified | CPT/HCPCS: 97110; 97163 ==

== ENCOUNTER 2022-02-02 06:00 | Outpatient (RCR) | payer MEDICARE, BC, SELFPAY | END 2022-03-03 23:59 | disposition home or self-care (01) | LOC: TPT 06:00 | PROVIDERS: PCP Family Medicine; Visit Provider Internal Medicine Pulmonary Disease | DX: R53.81 Other malaise (principal); J84.10 Pulmonary fibrosis, unspecified | CPT/HCPCS: 97110; 97164 ==

== ENCOUNTER → 2022-05-13 10:23 | Outpatient (BNVA) | payer MEDICARE, BC, SELFPAY | PROVIDERS: PCP Family Medicine; Visit Provider Family Medicine | DX: S22.000A Wedge compression fracture of unspecified thoracic vertebra, initial encounter for closed fracture (principal); R05.9 Cough, unspecified; X58.XXXA Exposure to other specified factors, initial encounter | CPT/HCPCS: 87426 ==

== ENCOUNTER 2022-05-18 13:51 | Outpatient (CLI) | payer MEDICARE, BC, SELFPAY ==
--- NOTE | 2022-05-18 14:30 | XR_ITS ---
WS: [id number] DEXA (DUAL ENERGY X-RAY ABSORPTIOMETRY) Bone mineral density was performed using a Shutter Guardian machine. HISTORY: S22.000A - Wedge compression fracture of spine. COMPARISON: None available. Lumbar spine BMD (L1-L4): 0.877 g/cm2 T score: -2.5 Z score: -0.6 Total hip BMD: Left: 0.561 g/cm2. T score: -3.5 Z score: -2.0 Right: 0.559 g/cm2. T score: -3.6 Z score: -2.1 10 year probability of a major osteoporotic fracture is 51.7%. XR/XR DEXA axial skeleton* 87253 IMPRESSION: OSTEOPOROSIS based upon the WHO classification for females.
== END 2022-05-18 13:52 | disposition home or self-care (01) ==
LOC: RAD 13:56
PROVIDERS: PCP Family Medicine; Visit Provider Family Medicine
DX: S22.000A Wedge compression fracture of unspecified thoracic vertebra, initial encounter for closed fracture (principal); M81.0 Age-related osteoporosis without current pathological fracture; X58.XXXA Exposure to other specified factors, initial encounter
CPT/HCPCS: 77080

== ENCOUNTER 2022-06-02 06:51 | Outpatient (CLI) | payer MEDICARE, BC, SELFPAY | END 2022-06-02 06:52 | disposition home or self-care (01) | LOC: RT 06:52 | PROVIDERS: PCP Family Medicine; Visit Provider Internal Medicine Pulmonary Disease | DX: J84.10 Pulmonary fibrosis, unspecified (principal); M35.9 Systemic involvement of connective tissue, unspecified | CPT/HCPCS: 94010; 94726; 94729 ==

== ENCOUNTER 2022-12-02 09:04 | Outpatient (CLI) | payer MEDICARE, BC, SELFPAY | END 2022-12-02 09:05 | disposition home or self-care (01) | PROVIDERS: PCP Family Medicine; Visit Provider Internal Medicine Pulmonary Disease | DX: J84.10 Pulmonary fibrosis, unspecified (principal) | CPT/HCPCS: 94010; 94726; 94729 ==

== ENCOUNTER → 2023-04-27 09:20 | Outpatient (BNVA) | payer MEDICARE, BC, SELFPAY | PROVIDERS: PCP Family Medicine; Visit Provider Family Medicine | DX: K21.9 Gastro-esophageal reflux disease without esophagitis (principal); M81.0 Age-related osteoporosis without current pathological fracture; I10 Essential (primary) hypertension; Z13.6 Encounter for screening for cardiovascular disorders | CPT/HCPCS: 80053; 80061; 84443; 85025 ==

== ENCOUNTER 2023-07-07 13:37 | Outpatient (CLI) | payer MEDICARE, BC, SELFPAY | END 2023-07-07 13:38 | disposition home or self-care (01) | LOC: RT 13:37 | PROVIDERS: PCP Family Medicine; Visit Provider Internal Medicine Pulmonary Disease | DX: R09.02 Hypoxemia (principal); J84.9 Interstitial pulmonary disease, unspecified; D86.0 Sarcoidosis of lung; J84.10 Pulmonary fibrosis, unspecified; M05.9 Rheumatoid arthritis with rheumatoid factor, unspecified; M35.9 Systemic involvement of connective tissue, unspecified; K44.9 Diaphragmatic hernia without obstruction or gangrene; R53.81 Other malaise; R68.2 Dry mouth, unspecified; H04.123 Dry eye syndrome of bilateral lacrimal glands; T78.40XA Allergy, unspecified, initial encounter | CPT/HCPCS: 94010; 94726; 94729; 99214 ==

== ENCOUNTER → 2024-01-26 09:36 | Outpatient (BNVA) | payer MEDICARE, BC, SELFPAY | PROVIDERS: PCP Family Medicine; Visit Provider Nurse Practitioner Family | DX: I10 Essential (primary) hypertension (principal); R30.0 Dysuria | CPT/HCPCS: 80053; 80061; 81000; 84443; 85025; 87086 ==

== ENCOUNTER → 2024-04-02 15:40 | Outpatient (BNVA) | payer MEDICARE, BC, SELFPAY | PROVIDERS: PCP Family Medicine; Visit Provider Nurse Practitioner Family | DX: R05.9 Cough, unspecified (principal); R91.8 Other nonspecific abnormal finding of lung field; J43.9 Emphysema, unspecified | CPT/HCPCS: 71046 ==

== ENCOUNTER 2024-04-11 12:29 | Outpatient (CLI) | payer MEDICARE, BC, SELFPAY | END 2024-04-11 12:30 | disposition home or self-care (01) | LOC: RT 12:30 | PROVIDERS: PCP Nurse Practitioner Family; Visit Provider Nurse Practitioner Family | DX: J84.10 Pulmonary fibrosis, unspecified (principal) | CPT/HCPCS: 94010; 94726; 94729 ==

== ENCOUNTER 2024-04-17 14:18 | Outpatient (CLI) | payer MEDICARE, BC, SELFPAY ==
--- NOTE | 2024-04-17 15:45 | CT_ITS ---
WS: [id number] CT chest wo con [id number] HISTORY: J84.10 - Pulmonary fibrosis, unspecified TECHNIQUE: Axial imaging performed through the thorax. Coronal and sagittal reformats are submitted. All CT scans at [facility] use at least one of these dose optimization techniques: automated exposure control; mA and/or kV adjustment per patient size (includes targeted exams where dose is mat ched to clinical indication); or iterative reconstruction. CONTRAST: None DLP: 217.87 mGy.cm COMPARISON: 12/29/2021, chest radiograph 04/02/2024 Lungs and central airway: Patient has known severe emphysema with superimposed UIP. Progression of ho neycombing and traction bronchiectasis involving the upper and lower lung field since the prior study . No dense areas of consolidation. Pleura: Normal. No pleural effusion. Heart and pericardium: Normal size heart. Heart is being distorted and displaced with mass effect sec ondary to a large hernia containing stomach, omentum and probable colon. Hernia was described on the prior imaging also. There is no ischemia at this time but patient is at risk for strangulation of the hernia due to extensive involvement. Mediastinum and golden: Atherosclerosis aorta. Normal size pulmonary artery. Mild splaying of the trach ea due to the large hernia of abdominal contents. Vessels: Atherosclerosis aorta. Normal size pulmonary artery. Chest wall and lower neck: No soft tissue masses. Upper abdomen: RIGHT lateral herniation containing colon. This herniation is just lateral to the lowe r rib cage and liver. No change. Osseous structures: Severe osteopenia. Numerous osteoporotic compression fractures in the thoracic an d visualized upper lumbar spine. Compression fractures extend from T5-T12 and L1-L3. CT/CT chest wo con [id number] IMPRESSION: 1. Patient has known extensive pulmonary fibrosis and UIP which has progressed since 12/29/2021. 2. No pneumonia. 3. Large hiatal hernia containing stomach omentum and GI tract. This hernia is displacing the heart and juanis. 4. No adenopathy.
== END 2024-04-17 14:19 | disposition home or self-care (01) ==
LOC: RAD 14:19
PROVIDERS: PCP Nurse Practitioner Family; Visit Provider Nurse Practitioner Family
DX: J84.10 Pulmonary fibrosis, unspecified (principal); J43.9 Emphysema, unspecified; K44.9 Diaphragmatic hernia without obstruction or gangrene; J47.9 Bronchiectasis, uncomplicated; R91.8 Other nonspecific abnormal finding of lung field; I70.0 Atherosclerosis of aorta; R93.89 Abnormal findings on diagnostic imaging of other specified body structures; M85.80 Other specified disorders of bone density and structure, unspecified site; Z87.310 Personal history of (healed) osteoporosis fracture
CPT/HCPCS: 71250

== ENCOUNTER 2024-06-21 09:16 | Outpatient (CLI) | payer MEDICARE, BC, SELFPAY ==
--- NOTE | 2024-06-21 09:24 | XR_ITS ---
WS: [id number] Thoracic spine, 3 views, 06/21/2024 Clinical Data: M54.6 - Pain in thoracic spine Comparison: Two-view chest, 04/02/2024 Findings: There are multiple compression fractures of the thoracic and the lumbar spine. There is a severe kyphosis. There is osteoarthritis of the vertebral bodies. There is a slight dextroscoliosis. There is severe interstitial change throughout both lungs with with left lower lobe atelectasis and/or effusion. The cystic change throughout the lungs was present on the previous chest x-ray. XR/XR thoracic spine 3V* [id number] Impression: 1. Multiple compression fractures of thoracic and lumbar spine along with osteo arthritis. 2. Severe interstitial change with cystic bronchiectasis of the lungs. 3. Left lower lobe atelectasis and/or effusion.
== END 2024-06-21 09:17 | disposition home or self-care (01) ==
LOC: RAD 09:20
PROVIDERS: PCP Nurse Practitioner Family; Visit Provider Nurse Practitioner Family
DX: M48.54XA Collapsed vertebra, not elsewhere classified, thoracic region, initial encounter for fracture (principal); M48.56XA Collapsed vertebra, not elsewhere classified, lumbar region, initial encounter for fracture; M47.896 Other spondylosis, lumbar region; M47.894 Other spondylosis, thoracic region; R91.8 Other nonspecific abnormal finding of lung field; J47.9 Bronchiectasis, uncomplicated; M40.294 Other kyphosis, thoracic region
CPT/HCPCS: 72072

== ENCOUNTER 2024-09-18 12:49 | Outpatient (CLI) | payer MEDICARE, BC, SELFPAY ==
--- NOTE | 2024-09-18 13:30 | XR_ITS ---
WS: [email or web address] SCREENING DEXA SCAN [employer] CLINICAL INFORMATION: M81.0 - Age-related osteoporosis without current patholog... COMPARISON: 2022 FINDINGS: The L1-L4 bone mineral density measures 0.879 g/cm2. This corresponds to a T score score of -2.5 and Z score of -0.7. Left femoral neck bone mineral density measures 0.593 g/cm2. This corresponds to a T score of -3.3 and Z score of -1.8. Right femoral neck bone mineral density measures 0.585 g/cm2. This corresponds to a T score -3.4of and Z score of -1.9. Mean femoral neck bone mineral density measures 0.589 g/cm2. This corresponds to a T score of -3.3 and Z score of -1.8. XR/XR DEXA axial skeleton* [id number] IMPRESSION: Osteoporosis lumbar spine. Osteoporosis femoral necks. Patient's FRAX calculated 10 year probability for major osteoporotic fracture i s 34.5% and osteoporotic hip fracture is 11.3%. Bone mineral density lumbar spine increased 0.2%. Bone mineral density femoral necks increased 5.2%
== END 2024-09-18 12:50 | disposition home or self-care (01) ==
LOC: RAD 12:51
PROVIDERS: PCP Nurse Practitioner Family; Visit Provider Nurse Practitioner Family
DX: M81.0 Age-related osteoporosis without current pathological fracture (principal)
CPT/HCPCS: 77080